=== PATIENT | male | born 1990 | race African-American/Black ===

== ENCOUNTER 2017-05-07 03:47 | Emergency (ER) | payer BC ==
[~2017-05-07] VITALS: Ht 180.3 cm; Wt 90.7 kg
--- NOTE | 2017-05-07 03:49 | PHYS DOC ---
Adult General Chief Complaint Chief Complaint: SORE THROAT HPI HPI Patient is a 27 year old -[place]ong[place] male who presents with. He states started Walter she began worse. He feels like he's had some fevers but has not really checked his temperature. His uncle checked it and stated it was normal and he has not checked it since then. He denies any nausea vomiting. He denies any changes in his voice. Review of Systems Review of Systems Constitutional: Denies fever or chills [] Eyes: Denies change in visual acuity, redness, or eye pain [] HENT: Denies nasal congestion or positive for sore throat Respiratory: Denies cough or shortness of breath [] Cardiovascular: No additional information not addressed in HPI [] GI: Denies abdominal pain, nausea, vomiting, bloody stools or diarrhea [] : Denies dysuria or hematuria [] Musculoskeletal: Denies back pain or joint pain [] Integument: Denies rash or skin lesions [] Neurologic: Denies headache, focal weakness or sensory changes [] Endocrine: Denies polyuria or polydipsia [] Current Medications Current Medications Current Medications Medications (Trade) Dose Ordered Sig/[facility] Start Time Stop Time Status Last Admin Dose Admin Acetaminophen (Tylenol) 1,000 mg 1X ONCE 05/07/17 04:00 05/07/17 04:28 DC 05/07/17 04:08 1,000 MG Dexamethasone Sodium Phosphate (Decadron) 10 mg 1X ONCE 05/07/17 04:30 05/07/17 04:31 DC 05/07/17 04:38 10 MG Penicillin G Benzathine (Bicillin L-A) 1,200,000 unit 1X ONCE 05/07/17 04:15 05/07/17 04:28 DC 05/07/17 04:25 1,200,000 UNIT Allergies Allergies Allergies Coded Allergies Type Severity Reaction Last Updated Verified No Known Drug Allergies 05/07/17 No Physical Exam Physical Exam Constitutional: Well developed, well nourished, no acute distress, non-toxic appearance. [] HENT: Normocephalic, atraumatic, bilateral external ears normal, oropharynx moist, exudates on the posterior pharynx, nose normal, anterior cervical lymphadenopathy noted. Eyes: PERRLA, EOMI, conjunctiva normal, no discharge. [] Neck: Normal range of motion, no tenderness, supple, no stridor. [] Cardiovascular:Heart rate regular rhythm, no murmur [] Lungs & Thorax: Bilateral breath sounds clear to auscultation [] Abdomen: Bowel sounds normal, soft, no tenderness, no masses, no pulsatile masses. [] Skin: Warm, dry, no erythema, no rash. [] Back: No tenderness, no CVA tenderness. [] Extremities: No tenderness, no cyanosis, no clubbing, ROM intact, no edema. [] Neurologic: Alert and oriented X 3, normal motor function, normal sensory function, no focal deficits noted. [] Psychologic: Affect normal, judgement normal, mood normal. [] Current Patient Data Vital Signs Vital Signs Date Time Temp Pulse Resp B/P (MAP) Pulse Ox O2 Delivery O2 Flow Rate FiO2 05/07/17 04:02 103.4 131 16 94 Room Air 103.4 EKG EKG [] Radiology/Procedures Radiology/Procedures [] Impressions: Strep pharyngitis Course & Med Decision Making Course & Med Decision Making Pertinent Labs and Imaging studies reviewed. (See chart for details) She had a fever upon arrival and was given Tylenol. His fever started to break why he was in the ER. Strep throat was positive and he was given 10 mg Decadron IM and 1.2 million a pen G. Patient is being discharged home with return precautions. He is agreeable to plan and is in stable condition at this time. Dragon Disclaimer Dragon Disclaimer This electronic medical record was generated, in whole or in part, using a voice recognition dictation system. Departure Departure Impression: Primary Impression: Strep throat Disposition: 01 HOME, SELF-CARE Condition: STABLE Patient Instructions: Strep Throat, [id number] Additional Instructions: You were seen today for your fever and sore throat. You have strep throat of which you received treatment with dexamethasone which is a steroid to help with the swelling and pain you'll also received penicillin shot which will help kill the bacteria that's causing your sore throat. You should feel better within the next 12-24 hours. If you develop high fevers, trouble swallowing, troubles breathing, or other concerns please return back to emergency department. DAMON YIP MD May 07, 2017 03:49
[2017-05-07] MEDS ORDERED: ACETAMINOPHEN 500 MG TABLET PO ONE (04:00)
[2017-05-07 04:02] VITALS: BP 123/77
[2017-05-07] MEDS ORDERED: PENICILLIN G BENZATHINE LA 1,200,000 UNIT/2 ML DISP.SYRIN. IM ONE (04:15)
[2017-05-07] MEDS ORDERED: DEXAMETHASONE SOD PHOS 4 MG/ML VIAL IM ONE (04:30)
[2017-05-07 07:45] LABS: NEGATIVE OBC STREP NEG; POSITIVE OBC STREP POS
== END 2017-05-07 04:59 | disposition home or self-care (01) ==
LOC: ER 03:47
DX: J02.0 Streptococcal pharyngitis (principal)
CPT/HCPCS: 87880; 96372; 99284; J0561; J1100

== ENCOUNTER 2018-08-06 17:57 | Emergency (ER) | payer BC ==
[~2018-08-06] VITALS: Ht 180.3 cm; Wt 99.8 kg
[2018-08-06] MEDS ORDERED: ONDA4TAB7 PO (20:52)
[2018-08-06] MEDS ORDERED: FAMO-63 PO (20:52)
[2018-08-06 21:09] VITALS: BP 128/78
--- NOTE | 2018-08-06 21:11 | PHYS DOC ---
Past Medical History Past Medical History: Asthma Past Surgical History: No Surgical History Alcohol Use: Occasionally Drug Use: None Adult General Chief Complaint Chief Complaint: NAUSEA/VOMITING/DIARRHA HPI HPI Patient is a 28 year old -[place] male with history of asthma who presents with persistent nausea and postprandial vomiting for 24 hours. Patient also reports multiple watery stools. Denies, pain, headache, dizziness, lightheadedness. Chest no palpitations, shortness of breath. No blood in stools dark tarry stools. No other acute symptoms or complaints. Patient states that symptoms began after eating spicy foods at his in-laws home. No other acute symptoms or complaints. [] Review of Systems Review of Systems Review symptoms as per history of present illness. All other review symptoms are negative. All other systems were reviewed and found to be within normal limits, except as documented in this note. Current Medications Current Medications Current Medications Medications (Trade) Dose Ordered Sig/Alicja Start Time Stop Time Status Last Admin Dose Admin Famotidine (Pepcid) 20 mg 1X ONCE 08/06/18 21:30 08/06/18 21:31 08/06/18 21:01 20 MG Ondansetron HCl (Zofran Odt) 8 mg 1X ONCE 08/06/18 21:30 08/06/18 21:31 08/06/18 21:01 8 MG Allergies Allergies Allergies Coded Allergies Type Severity Reaction Last Updated Verified No Known Drug Allergies 05/07/17 No Physical Exam Physical Exam Constitutional: Well developed, well nourished, no acute distress, non-toxic appearance. [] HENT: Normocephalic, atraumatic, bilateral external ears normal, oropharynx moist, no oral exudates, nose normal. [] Eyes: PERRLA, EOMI, conjunctiva normal, no discharge. [] Neck: Normal range of motion, no tenderness, supple, no stridor. [] Cardiovascular:Heart rate regular rhythm, no murmur [] Lungs & Thorax: Bilateral breath sounds clear to auscultation [] Abdomen: Bowel sounds normal, soft, no tenderness. [] Skin: Warm, dry, no erythema, no rash. [] Back: No tenderness. [] Extremities: No tenderness. [] Neurologic: Alert and oriented X 3, normal motor function, normal sensory function, no focal deficits noted. [] Psychologic: Affect normal, judgement normal, mood normal. [] Current Patient Data Vital Signs Vital Signs Date Time Temp Pulse Resp B/P (MAP) Pulse Ox O2 Delivery O2 Flow Rate FiO2 08/06/18 19:20 97.6 73 20 130/84 (99) 99 Room Air 97.6 EKG EKG [] Radiology/Procedures Radiology/Procedures [] Course & Med Decision Making Course & Med Decision Making Pertinent Labs and Imaging studies reviewed. (See chart for details) [Patient's abdomen soft, nontender. Vital signs are stable. Will treat supportively with watchful waiting and PCP follow-up. Return precautions reviewed.] Dragon Disclaimer Dragon Disclaimer This electronic medical record was generated, in whole or in part, using a voice recognition dictation system. Departure Departure Impression: Primary Impression: Nausea vomiting and diarrhea Disposition: 01 HOME, SELF-CARE Condition: GOOD Patient Instructions: Nausea, Adult, [id number], Diarrhea, [id number] Additional Instructions: Please take nausea and antacid medication as directed. Take Pepto-Bismol as needed for diarrhea. Drink clear liquids only for the next 2-3 hours and gradually increased to a bland diet as tolerated over the next 6-12 hours. Follow-up with your PCP as needed. Return to the ED if new or worsening symptoms. Scripts Famotidine (PEPCID) 20 Mg Tablet 20 MG PO BID, #30 TAB Prov: PABLO MULLER DO 08/06/18 Ondansetron Hcl (ZOFRAN) 4 Mg Tablet 1 TAB PO Q6HRS, #10 TAB 0 Refills Prov: PABLO MULLER DO 08/06/18 PABLO MULLER DO Aug 06, 2018 21:11
[2018-08-06] MEDS ORDERED: ONDANSETRON ODT 4 MG TAB.RAPDIS. PO ONE (21:30)
[2018-08-06] MEDS ORDERED: FAMOTIDINE 20 MG TABLET. PO ONE (21:30)
== END 2018-08-06 21:10 | disposition home or self-care (01) ==
LOC: ER 17:57
DX: R11.2 Nausea with vomiting, unspecified (principal); R19.7 Diarrhea, unspecified; J45.909 Unspecified asthma, uncomplicated
CPT/HCPCS: 99283; Q0162

== ENCOUNTER 2019-12-09 10:15 | Emergency (ER) | payer BC ==
[~2019-12-09] VITALS: Ht 180.3 cm; Wt 100.0 kg
[~2019-12-09 10:15] MED LIST: FAMO-63 PO; ONDA4TAB7 PO
[2019-12-09 10:37] VITALS: BP 143/89
--- NOTE | 2019-12-09 11:22 | PHYS DOC ---
Past Medical History Past Medical History: Asthma (KING STAUFFER APRN) Past Surgical History: No Surgical History (KING STAUFFER APRN) Smoking Status: Current Some Day Smoker Alcohol Use: Occasionally Drug Use: None (KING STAUFFER APRN) General Adult EDM: Chief Complaint: HEADACHE HPI: HPI: Patient is a 30 year old AA male who presents to the emergency department with complaints of pain behind his right eye, nasal congestion, and a sore throat. 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 He denies any fever, body aches, chills, shortness of breath, cough, chest pain, palpitations, nausea, vomiting, diarrhea, runny nose, abdominal pain, neck pain, or anosmia. He currently rates the pain a 2 out of 10 on the pain scale, he denies any alleviating factors. Patient states that the nasal congestion and intermittent headache started actually a couple weeks ago. He states that the symptoms seem to be worse in the morning and improves throughout the day. (KING STAUFFER APRN) Review of Systems: Review of Systems: Constitutional: Denies fever or chills. [] Eyes: Denies change in visual acuity. [] HENT: See HPI Respiratory: Denies cough, wheezing, or shortness of breath. [] Cardiovascular: Denies chest pain or edema. [] GI: Denies abdominal pain, nausea, vomiting, or diarrhea. [] Musculoskeletal: Denies back pain or joint pain. [] Integument: Denies rash. [] Neurologic: Denies focal weakness or sensory changes; see HPI Endocrine: Denies polyuria or polydipsia. [] Lymphatic: Denies swollen glands. [] Psychiatric: Denies depression or anxiety. [] (KING STAUFFER APRN) Heart Score: Risk Factors: Risk Factors: DM, Current or recent (<one month) smoker, HTN, HLP, family history of CAD, obesity. Risk Scores: Score 0 - 3: 2.5% MACE over next 6 weeks - Discharge Home Score 4 - 6: 20.3% MACE over next 6 weeks - Admit for Clinical Observation Score 7 - 10: 72.7% MACE over next 6 weeks - Early Invasive Strategies (KING STAUFFER APRN) Allergies: Allergies: Allergies Coded Allergies Type Severity Reaction Last Updated Verified No Known Drug Allergies 05/07/17 No (KING STAUFFER APRN) Physical Exam: PE: Constitutional: Well developed, well nourished, no acute distress, non-toxic appearance. [] HENT: Normocephalic, atraumatic, bilateral external ears normal, bilateral TMs normal, oropharynx moist; cobblestone appearance of posterior pharynx, erythema and edema of nasal turbinates bilaterally Eyes: PERRLA, EOMI, conjunctiva normal, no discharge. [] Neck: Normal range of motion, no tenderness, supple, no stridor. [] Cardiovascular:Heart rate regular rhythm, no murmur [] Lungs & Thorax: Bilateral breath sounds clear to auscultation, Respirations even and unlabored, no retractions, no respiratory distress [] Skin: Warm, dry, no erythema, no rash. [] Back: No tenderness Extremities: No cyanosis, ROM intact Neurologic: Alert and oriented X 3, no focal deficits noted. [] Psychologic: Affect normal, judgement normal, mood normal. [] (KING STAUFFER APRN) Current Patient Data: Vital Signs: Vital Signs Date Time Temp Pulse Resp B/P (MAP) Pulse Ox O2 Delivery O2 Flow Rate FiO2 12/09/19 10:37 98.0 81 16 143/89 (107) 100 Room Air 98.0 (KING STAUFFER APRN) EKG: EKG: [] (KING STAUFFER APRN) Radiology/Procedures: Radiology/Procedures: [] (KING STAUFFER APRN) Course & Med Decision Making: Course & Med Decision Making Pertinent Labs and Imaging studies reviewed. (See chart for details) I offered the patient testing for COVID-19, he declined at this time. Low suspi cion for COVID-19 process as the patient is afebrile and has minimal symptoms. Most likely the patient is suffering from seasonal allergies with presence of rhinitis on exam. Recommend the patient takes 10 mg of Zyrtec daily at night and avoid exposure to airway irritants such as pollen, dust, perfumes, and smoke. Patient advised that he should self isolate as these could be early symptoms of COVID-19 even though the suspicion is low. Follow-up with his primary care doctor as needed, return to the ER if symptoms worsen or he develops fever. Patient verbalized an understanding of home care, medications, follow-up, and return to ED instructions and was in agreement with the plan of care. [] (KING STAUFFER APRN) Dragon Disclaimer: Dragon Disclaimer: This electronic medical record was generated, in whole or in part, using a voice recognition dictation system. (KING STAUFFER APRN) Departure Departure Impression: Primary Impression: Allergic rhinitis Qualified Codes: J30.9 - Allergic rhinitis, unspecified Disposition: 01 HOME, SELF-CARE Condition: STABLE Referrals: NO PCP (PCP) Patient Instructions: Allergic Rhinitis Additional Instructions: Recommend that you take 10 mg of generic Zyrtec (cetirizine) or Claritin at bedtime and use over the counter Flonase (fluticasone) nasal spray 2 sprays each nostril once daily in the morning. You may take Tylenol or ibuprofen as needed for pain/fever. Increase clear fluids. Avoid triggers such as smoke, fragrance, dust, and pollen. You may take OTC cough suppressants as needed. Follow-up with your primary care doctor if symptoms persist, return to the ER if symptoms worsen. Thank you for visiting [facility]. We appreciate you trusting us with your care. If any additional problems come up please don't hesitate to return to visit us. Follow up with your primary care provider so they can plan additional care if needed and know about the problem that you had today. If symptoms worsen come back to the Emergency Department. Any concerning symptoms that start such as chest pain, shortness of air, weakness or numbness on one side of the body, running high fevers or any other concerning symptoms return to the ER. You may also have a viral syndrome which may include symptoms like muscle aches, fevers, chills, runny nose, cough, sneezing, sore throat, nausea, vomiting, or diarrhea. One of the potential viruses that you may have is SARS-CoV-2, the virus that causes COVID-19, also known as the Coronavirus. You are just as likely to have a different viral infection such as the common cold, flu, etc. Most patients with the Coronavirus have mild symptoms and recover on their own. Resting, staying hydrated, and sleep based on known cases can be helpful. As of todays visit, you are well enough to go home and treat your symptoms with oral fluids and over the counter medications. Coronavirus testing is not performed on most people with mild symptoms who are being discharged from the emergency department. If Coronavirus testing was performed today the results will not be available for possibly up to 3-4 days. If your result is positive you will be contacted. Please follow the following precautions at home: 1. Stay home except to get medical care. 2. As advised by the CDC, we recommend that you stay in your home and minimize contact with other people. We do not want you to spread the infection. 3. Those who are older or have significant medical issues may have more severe symptoms from this infection. We recommend self-isolation FOR AT LEAST 7 DAYS after your 1st day of symptoms. AFTER you feel better please wait AT LEAST ANOTHER WEEK before returning to regular activities and being around other people. 4. IF you become sicker and have difficulty breathing, chest pain, are unable to eat/drink, severe vomiting, diarrhea, or weakness you may need to return to the Emergency Department. 5. You should restrict activities outside of your home, except for getting medical care. DO NOT go to work, school, or public areas. Avoid using public transportation, ride sharing, or taxis. 6. Separate yourself from other people in your home. You should use a separate bathroom if possible. 7. Avoid sharing personal household items such as dishes, cups, eating utensils, towels, etc. 8. Clean all high touch surfaces every day (door knobs, counter tops, etc). Use a household cleaning spray or wipe per label instructions. 9. Clean your hands often. Wash your hands with soap and water for at least 20 seconds. 10. Cover your mouth and nose when you cough or sneeze. 11. Throw used tissues in the trash and immediately wash your hands. For additional resources please visit the CDC website or your local health department for further information. COVID-19 Assessment: COVID-19 Patient Risks: Age 65 or older: No Sign of co-morbidity: No Exp to person + for COVID: Yes Exp to PUI: No Travel from affected area: No Lower respiratory symptoms: No Fever: No (KING STAUFFER APRN) PPE Use: Full PPE with N95 mask or PAPR: Yes (N95) (KING STAUFFER APRN) KING STAUFFER APRN Dec 09, 2019 11:22 TAYLOR LINDER DO Dec 12, 2019 07:16
== END 2019-12-09 11:33 | disposition home or self-care (01) ==
LOC: ER 10:15
DX: J45.909 Unspecified asthma, uncomplicated (principal); R09.81 Nasal congestion; H57.11 Ocular pain, right eye; F17.200 Nicotine dependence, unspecified, uncomplicated; Z20.818 Contact with and (suspected) exposure to other bacterial communicable diseases
CPT/HCPCS: 99281; 99282

== ENCOUNTER 2020-07-24 21:20 | Emergency (ER) | payer BC ==
[~2020-07-24] VITALS: Ht 180.3 cm; Wt 94.5 kg
--- NOTE | 2020-07-24 22:08 | PHYS DOC ---
Past Medical History Past Medical History: No Pertinent History Past Surgical History: No Surgical History Smoking Status: Never Smoker Alcohol Use: Occasionally Drug Use: None General Adult EDM: Chief Complaint: HEADACHE HPI: HPI: Patient is a 30 year old male who presents with vomiting and headache that st arted yesterday. Pt states that the pain is rated 4/10 and is located on his right adventism. The pain radiates to the back of his head. There is no aura associated with the headache. The pain is constant and does not pulsate. The patient normally has headaches and they started about one year ago. The pain comes after eating a large meal and vomiting helps the pain. Bright lights make the pain worse. Working out makes the headaches less frequent. Pt took 2 500mg tylenol and that helped the pain. Pt denies and change in vision. Review of Systems: Review of Systems: Constitutional: Denies fever or chills Eyes: Denies redness or eye pain HENT: Denies nasal congestion or sore throat Respiratory: Denies cough or shortness of breath Cardiovascular: Denies chest pain or palpitations GI: Denies abdominal pain, endorses nausea and vomiting : Denies dysuria or hematuria Musculoskeletal: Denies back pain or joint pain Integument: Denies rash or skin lesions Neurologic: Denies focal weakness or sensory changes, endorses headache Complete systems were reviewed and found to be within normal limits, except as d ocumented in this note. Allergies: Allergies: Allergies Coded Allergies Type Severity Reaction Last Updated Verified No Known Drug Allergies 05/07/17 No Physical Exam: PE: Constitutional: Well developed, well nourished, no acute distress, non-toxic appearance HENT: Normocephalic, atraumatic Eyes: PERRL, EOMI, conjunctiva normal, no discharge Neck: Normal range of motion, no tenderness, supple Lungs & Thorax: No respiratory distress, equal chest rise and fall Abdomen: Soft, no tenderness Skin: Warm, dry, no erythema, no rash Back: No tenderness, no CVA tenderness Extremities: No tenderness, ROM intact, no edema Neurologic: Alert and oriented X 3, normal motor function, normal sensory function, no focal deficits noted Psychologic: Affect normal, judgment normal Current Patient Data: Vital Signs: Vital Signs Date Time Temp Pulse Resp B/P (MAP) Pulse Ox O2 Delivery O2 Flow Rate FiO2 07/24/20 21:34 98.3 75 13 142/88 (106) 98 Room Air 98.3 EKG: EKG: [] Radiology/Procedures: Radiology/Procedures: [] Course & Med Decision Making: Course & Med Decision Making Pertinent Labs and Imaging studies reviewed. (See chart for details) 30 male pt presents today with a headache and vomiting that started yesterday. Pt states this is normal for him as he has chronic headaches. Pt is neurologically intact without any meningeal signs. Pt states that he would like a note from work. Symptomatic treatment provided. Patient stable for discharge with outpatient follow-up with PCP. Discussed findings and plan with patient, who acknowledges understanding and agreement. Dragon Disclaimer: Jeet Disclaimer: This electronic medical record was generated, in whole or in part, using a voice recognition dictation system. Departure Departure Impression: Primary Impression: Migraine Qualified Codes: G43.909 - Migraine, unspecified, not intractable, without status migrainosus Disposition: 01 DC HOME SELF CARE/HOMELESS Condition: STABLE Referrals: NO PCP (PCP) Patient Instructions: Migraine Headache, [id number] Scripts Ondansetron (ONDANSETRON ODT) 4 Mg Tab.rapdis 1 TAB PO PRN Q6-8HRS PRN for NAUSEA, #16 TAB Prov: AYE LUCIA DO 07/24/20 Butalb/Acetaminophen/Caffeine ([id number] [id number]) 1 Each Tablet 1 EACH PO Q6HRS PRN for HEADACHE, #10 TAB Prov: AYE LUCIA DO 07/24/20 AYE LUCIA DO Jul 24, 2020 22:08
[2020-07-24 22:15] VITALS: BP 133/72
[2020-07-24] MEDS ORDERED: ONDA4TAB12 PO (22:21)
[2020-07-24] MEDS ORDERED: BUTA1TAB23 PO (22:21)
[2020-07-24] MEDS ORDERED: ONDANSETRON ODT 4 MG TAB.RAPDIS. PO ONE (22:30)
[2020-07-24] MEDS ORDERED: BUTALB/APAP/CAFEIN 50/325/40MG TABLET. PO ONE (22:30)
== END 2020-07-24 22:30 | disposition home or self-care (01) ==
LOC: ER 21:20
DX: G43.909 Migraine, unspecified, not intractable, without status migrainosus (principal); G89.29 Other chronic pain
CPT/HCPCS: 99283

== ENCOUNTER 2020-09-04 06:36 | Emergency (ER) | payer BC ==
[~2020-09-04] VITALS: Ht 182.9 cm; Wt 100.0 kg
[~2020-09-04 06:36] MED LIST changes: +BUTA1TAB23 PO; +ONDA4TAB12 PO
[2020-09-04 07:29] VITALS: BP 150/68
[2020-09-04] MEDS ORDERED: ONDANSETRON ODT 4 MG TAB.RAPDIS. PO ONE (07:45)
[2020-09-04] MEDS ORDERED: BUTALB/APAP/CAFEIN 50/325/40MG TABLET. PO ONE (07:45)
[2020-09-04] MEDS ORDERED: BUTA1TAB23 PO (07:47)
[2020-09-04] MEDS ORDERED: ONDA4TAB12 PO (07:47)
--- NOTE | 2020-09-04 07:47 | PHYS DOC ---
Past Medical History Past Medical History: No Pertinent History Past Surgical History: No Surgical History Smoking Status: Never Smoker Alcohol Use: Occasionally Drug Use: None General Adult EDM: Chief Complaint: MULTIPLE COMPLAINTS HPI: HPI: Patient is a 30 year old male presents complaint of nausea and vomiting with chronic headache that started yesterday. Patient reports he vomited "so hard "that he ended up with a rash on his cheeks. Patient reports still does not feel well. Patient reports now also with sore throat. Denies any fever or chills. Reports previously had COVID- 19 in January 2020. Reports he gets tested weekly but did not get tested in the last 2 weeks because he was on vacation. Patient denies any known sick contacts. Review of Systems: Review of Systems: Constitutional: Denies fever or chills; reports malaise Eyes: Denies redness or eye pain HENT: Denies nasal congestion; reports sore throat Respiratory: Denies cough or shortness of breath Cardiovascular: Denies chest pain or palpitations GI: Denies abdominal pain; reports nausea and vomiting : Denies dysuria or hematuria Musculoskeletal: Denies back pain or neck pain Integument: Reports facial rash; denies skin lesions Neurologic: Reports headache; denies focal weakness or sensory changes Complete systems were reviewed and found to be within normal limits, except as documented in this note. Allergies: Allergies: Allergies Coded Allergies Type Severity Reaction Last Updated Verified No Known Drug Allergies 05/07/17 No Physical Exam: PE: Constitutional: Well developed, well nourished, no acute distress, non-toxic appearance HENT: Normocephalic, atraumatic, pharynx erythematous without exudate Eyes: PERRL, EOMI, conjunctiva normal, no discharge Neck: Normal range of motion, no midline tenderness, supple, no meningeal signs Lungs & Thorax: No respiratory distress, equal chest rise and fall Abdomen: Soft, no tenderness Skin: Warm, dry, no erythema, no rash Extremities: No tenderness, ROM intact, no edema Neurologic: Alert and oriented X 3, normal motor function, normal sensory function, no focal deficits noted Psychologic: Affect normal, judgment normal Current Patient Data: Vital Signs: Vital Signs Date Time Temp Pulse Resp B/P (MAP) Pulse Ox O2 Delivery O2 Flow Rate FiO2 09/04/20 07:29 98.0 84 20 150/68 (95) 99 Room Air 98.0 EKG: EKG: [] Radiology/Procedures: Radiology/Procedures: [] Course & Med Decision Making: Course & Med Decision Making Neurologically intact male presents with report of nausea and vomiting with associated chronic headache that started yesterday. No meningeal signs noted. Patient also complaining of sore throat. Physical exam findings more consistent with irritation from vomiting. Symptomatic treatment provided. Patient requesting work note. Patient stable for discharge with outpatient follow-up with PCP. Discussed findings and plan with patient, who acknowledges understanding and agreement. Dragon Disclaimer: Jeet Disclaimer: This electronic medical record was generated, in whole or in part, using a voice recognition dictation system. Departure Departure Impression: Primary Impression: Headache Qualified Codes: R51.9 - Headache, unspecified Additional Impression: Nausea and vomiting Qualified Codes: R11.2 - Nausea with vomiting, unspecified Disposition: 01 DC HOME SELF CARE/HOMELESS Condition: STABLE Referrals: NO PCP (PCP) MADISON BACON MD Patient Instructions: Clear Liquid Diet, [id number], Headache, FAQs, Nausea and Vomiting, [id number] Scripts Butalb/Acetaminophen/Caffeine ([id number] 50-325-40) 1 Each Tablet 1 EACH PO Q6HRS PRN for HEADACHE, #10 TAB Prov: AYE LUCIA DO 09/04/20 Ondansetron (ONDANSETRON ODT) 4 Mg Tab.rapdis 1 TAB PO PRN Q6-8HRS PRN for NAUSEA, #16 TAB Prov: AYE LUCIA DO 09/04/20 AYE LUCIA DO Sep 04, 2020 07:47
== END 2020-09-04 07:56 | disposition home or self-care (01) ==
LOC: ER 06:36
DX: R51.9 Headache, unspecified (principal); R11.2 Nausea with vomiting, unspecified; G89.29 Other chronic pain; J02.9 Acute pharyngitis, unspecified; R21 Rash and other nonspecific skin eruption
CPT/HCPCS: 99283